=== PATIENT | male | born 1985 | race Caucasian/White ===

== ENCOUNTER 2018-10-06 14:36 | Emergency (ER) | payer MEDICAID ==
[2018-10-06] MEDS: ACETAMINOPHEN 500 MG TAB PO (16:30)
[2018-10-06] MEDS: LIDOCAINE 2% VISC 15 ML CUP PO (16:30)
[2018-10-06] MEDS: IBUPROFEN 600 MG TAB PO (16:30)
== END 2018-10-06 16:57 | disposition home or self-care (01) ==
LOC: FTE 14:36
DX: J02.0 Streptococcal pharyngitis (principal)
CPT/HCPCS: 99283; Z7502